=== PATIENT | female | born 1965 | race Two or more races ===

== ENCOUNTER 2021-03-11 06:47 | Day surgery (SDC) | payer OTHER ==
[~2021-03-11 06:47] MED LIST: PROTONIX20 MG PO; SINGULAIR10 MG PO
[2021-03-11] MEDS ORDERED: MORGIDOX100 MG PO (10:09)
== END 2021-03-11 15:25 | disposition home or self-care (01) ==
LOC: CIR.AMB 06:47
PROVIDERS: ATTEND Obstetrics & Gynecology
DX: N84.0 Polyp of corpus uteri (principal); Z20.822 Contact with and (suspected) exposure to COVID-19